=== PATIENT | female | born 1950 | race Caucasian/White ===

== ENCOUNTER 2020-12-17 14:44 | Inpatient (IN) | payer MEDICARE, BC ==
[2020-12-17 17:22] VITALS: BMI 31.2
[2020-12-17] MEDS ORDERED: Morphine 2 MG/ML VIAL SLOW IVP PRN (18:05)
[2020-12-17] MEDS: Sodium Chloride 0.9% 1,000 ML IV SCH (18:46)
[2020-12-17] MEDS ORDERED: Ondansetron PF 4 MG/2 ML Vial IVP PRN (18:50)
--- NOTE | 2020-12-17 19:07 | PDOC.HHP ---
Hospitalist HPI Transfer History of Present Illness: Patient is a 70-year-old female has a remote history of gastric bypass surgery c omplicated by subsequent ulcer and perforation. She required second surgery. Patient reports that she was having some vague symptoms and poor appetite when she presented to the [facility] emergency department. Patient was subsequently placed in observation because she had some mild leukocytosis and her renal function was suboptimal. CT scan of her abdomen appeared to reveal what looks like a self-contained perforation of the anastomosis between the distal gastric remnant and the small intestine. Patient was given some antibiotics and surgery was consulted. Because this was complication of a prior gastric bypass procedure the patient was transferred to this facility for further evaluation. Of note the patient was having some diarrhea. Stool studies were obtained. The only significant finding was a positive H. pylori antigen. Patient was subsequently started on oral antibiotic regimen. Currently the patient says she feels pretty well. The pain medicines are helpin g with her discomfort. It has caused her some itching. Allergies/Adverse Reactions: Allergy/AdvReac Type Severity Reaction Status Date / Time No Known Allergies Allergy Verified 12/16/20 20:29 Home Medications: Medication Instructions Recorded Confirmed Type Amlodipine Besylate [amLODIPine 10 mg PO DAILY 12/17/20 12/17/20 History Besylate] Escitalopram Oxalate [Lexapro] 20 mg PO DAILY 12/17/20 12/17/20 History Lamotrigine [lamoTRIgine] 150 mg PO BID 12/17/20 12/17/20 History Pantoprazole [Protonix] 40 mg PO DAILY-AC 12/17/20 12/17/20 History Valsartan/Hydrochlorothiazide 1 each PO DAILY 12/17/20 12/17/20 History [Valsartan-Hctz 160-12.5 mg Tab] Past History: PMHx: Hypertension, anxiety and depression, remote history of a single kidney stone PSHx: Hysterectomy, gastric bypass, revision after perforated ulcer FHx: Father had stomach cancer, mother had lung cancer, brother of an [place] at 65 Social: Non-smoker, nondrinker, nondrug user. . Full code. would be her surrogate. Hospitalist HPI ROS Constitutional: denies: fever, chills Cardiovascular: denies: chest pain, palpitations Gastrointestinal: reports: abdominal pain All other systems reviewed; all pertinent +/- noted in HPI/Subj Hospitalist Exam Vitals: Vital Signs (12 hours) Temp Pulse Resp BP Pulse Ox 12/17/20 16:46 97.6 F 72 16 105/63 93 L Weight Weight 160 lb General Appearance: NAD, awake alert General - other findings: Obese Neck: supple, symmetric, no JVD, no thyromegaly, no lymphadenopathy, no carotid bruit Heart: RRR, no gallops, no rubs, normal peripheral pulses, II/IV Respiratory: CTAB, no wheezes, no rales, no ronchi, normal chest expansion, no tachypnea, normal percussion Gastrointestinal: soft, non-distended, normal bowel sounds, no palpable masses, no hepatomegaly, no splenomegaly, tender to palpation (Mildly in the epigastrium) Extremities: no cyanosis, no clubbing, no edema Skin: normal turgor Neurological: no focal deficits Musculoskeletal: normal tone, normal strength, no muscle wasting Psychiatric: normal affect, normal behavior, A&O x 3 Hospitalist Results Lab results: White count 13.7, hemoglobin 10.6, platelets 311. Sodium 136, potassium 3.7, chloride 102, BUN 40, creatinine 1.93, GFR 26, glucose 138. Alk phos 183 otherwise LFTs normal. Lipase normal. Covid screen negative Hospitalist H&P A/P (1) Perforated small intestine Code(s): K63.1 - PERFORATION OF INTESTINE (NONTRAUMATIC) Status: Acute (2) Acute kidney injury Code(s): N17.9 - ACUTE KIDNEY FAILURE, UNSPECIFIED Status: Acute (3) History of gastric bypass Code(s): Z98.84 - BARIATRIC SURGERY STATUS Status: Acute Plan: Perforated anastomosis of the gastrointestinal junction: Patient was having some vague symptoms of poor appetite and nausea. CT scan appears to show self-contained perforation of the anastomosis of the gastric remnant and small bowel. Patient does not appear to be septic. She is not terribly tender. Start IV Zosyn. NPO. Consult surgery. Discussed with Dr. Wren. We will obtain CT scan with oral contrast. Pain management as needed. Acute kidney injury: Patient is unaware of any prior kidney problems. She has had relatively routine lab work. Suspect this is more of an acute injury. Based on her indices suspect this is prerenal from dehydration. Continue IV fluids and monitoring the renal function. History of gastric bypass: Appears to be the anastomoses that may be leaking. History of anxiety and depression: We will resume her home medications once she is able to take p.o.'s. Hypertension: We will resume her home medications when she is able to take p.o.'s. Currently blood pressure appears to be well controlled.
[2020-12-17] MEDS ORDERED: diphenhydrAMINE 25 MG in Sodium Chloride 0.9% 50 ML IVPB SCH (19:15)
[2020-12-17] MEDS: Pantoprazole 40 MG VIAL IVP SCH (20:37)
--- NOTE | 2020-12-17 21:13 | CON ---
DATE OF CONSULTATION: 12/17/2020 CHIEF COMPLAINT: Perforated . HISTORY OF PRESENT ILLNESS: This is a 70-year-old female, who 20 years ago had Noah-en-Y gastric bypass for morbid obesity, that postop course was complicated by what sounds like internal hernia that was repaired. She has been doing quite well, but she developed some epigastric pain. Within the last year, saw Dr. Laura Valentin, had an EGD, which she thought was normal, but started on Protonix. She was supposed to go see Dr. Valentin back in 6 months, but she did not because she was feeling okay. She denies smoking. Denies alcohol. Denies that the pain only became worse within the last few days again and states that she has been on Protonix the whole time. She presented with epigastric pain to the [facility], where she was found to have localized perforation, was sent here for higher level of care. PAST MEDICAL HISTORY: Includes hypertension, anxiety, and depression. PAST SURGICAL HISTORY: Hysterectomy, gastric bypass. MEDICATIONS: Home medicines included; 1. Amlodipine. 2. Lexapro. 3. Protonix. 4. Valsartan. 5. Hydrochlorothiazide. ALLERGIES: NO KNOWN DRUG ALLERGIES. SOCIAL HISTORY: No smoking or alcohol. REVIEW OF SYSTEMS: Ten-system review of systems is otherwise negative unless described above. PHYSICAL EXAMINATION: VITAL SIGNS: Pulse 72, respirations 16, and temperature 97.6. HEENT: Sclerae are anicteric. Oropharynx clear. NECK: No lymphadenopathy. CHEST: Clear. HEART: Regular rate. ABDOMEN: Soft. Minimally tender in the epigastric area. No guarding or rebound. No peritoneal signs. No abdominal hernias. EXTREMITIES: No ischemia or edema to extremities. LABORATORY DATA: White blood cell count is 13, hemoglobin 10.6, and platelets 311. Creatinine is elevated slightly at 1.93. IMAGING DATA: CT scan as above. ASSESSMENT: 1. Perforated Zosyn, n.p.o., IV fluids. We will get CT scan with oral contrast to see if there is active extravasation. 2. Acute on chronic renal failure. Creatinine is up slightly. 3. History of anxiety and depression. 4. History of hypertension. PLAN: For CT with oral contrast. If that shows obvious perforation. If that shows ongoing leakage of contrast, she would need a surgical procedure. Otherwise, we will treat this nonoperatively. Job ID: [id number]
[2020-12-17] MEDS: Piperacillin/Tazobactam 2.25 GM in Sodium Chloride 0.9% 100 ML IVPB SCH (23:48)
[2020-12-17] MEDS ORDERED: Piperacillin/Tazobactam 3.375 GM in Sodium Chloride 0.9% 100 ML IVPB SCH (23:59)
[2020-12-18 05:37] LABS: Anion Gap 14 mmol/L (10-20); BUN (Urea Nitrogen) 37 mg/dL (9.8-20.1); Calc. Creatinine Clearance 34 mL/min (70-130); Calcium 8.4 mg/dL (7.8-10.44); Carbon Dioxide 17 mmol/L (23-31); Chloride 107 mmol/L (98-107); Glucose 90 mg/dL (83-110); Potassium 3.8 mmol/L (3.5-5.1); Sodium 134 mmol/L (136-145)
[2020-12-18] MEDS: Piperacillin/Tazobactam 2.25 GM in Sodium Chloride 0.9% 100 ML IVPB SCH ×4 (05:48→23:22)
[2020-12-18] MEDS: Sodium Chloride 0.9% 1,000 ML IV SCH (05:48)
[2020-12-18 07:50] LABS: #Eosinphils 0.1 thou/uL (0.0-0.7); #Lymphocytes 0.7 thou/uL (1.20-3.40); #Monocytes 0.8 thou/uL (0.11-0.59); #Neutrophils 10.8 thou/uL (1.40-6.50); %Basophils 0.1 % (0.0-1.0); %Eosinophils 0.6 % (0.0-10.0); %Lymphocytes 5.8 % (21.0-51.0); %Monocytes 6.4 % (0.0-10.0); %Neutrophils 87.1 % (42.0-75.0); Mean Corpuscular HGB CONC 31.5 g/dL (32.0-36.0); Mean Corpuscular Hemoglobin 30.2 pg (27.0-31.0); Mean Platelet Volume 9.2 fL (7.4-10.4); Platelet Count 246 thou/uL (130-400); RBC Distribution Width 11.1 % (11.5-14.5); Red Blood Cell (RBC) Count 3.62 mill/uL (4.20-5.40); White Blood Cell (WBC) Count 12.4 thou/uL (4.8-10.8)
[2020-12-18 09:01] LABS: Magnesium 2.1 mg/dL (1.6-2.6); Phosphorus 3.1 mg/dL (2.3-4.7)
[2020-12-18] MEDS: Pantoprazole 40 MG VIAL IVP SCH ×2 (09:26→20:10)
[2020-12-18] MEDS: D5 1/2 NS w/20 mEq KCL 1,000 ML IV SCH ×3 (09:28→20:05)
--- NOTE | 2020-12-18 16:27 | CT ---
CT Abdomen WO Con: 12/18/2020 11:46 AM HISTORY: Status post gastric sleeve 20 years ago with multiple surgeries since then secondary to comp lications. Abdominal pain. Evaluate for leak. Poor renal function. COMPARISON: 12/17/2020 TECHNIQUE: Multiple contiguous axial images were obtained and a CT of the abdomen without IV contrast. Oral cont rast was administered. Coronal and sagittal reformats were performed. FINDINGS: This examination is limited for the evaluation of solid organs and vascular structures due to the lac k of intravenous contrast. Lower Chest: Bilateral dependent atelectasis Abdomen: Liver: within normal limits. Bile Ducts: Normal caliber. Gallbladder: Absent Pancreas: within normal limits. Spleen: within normal limits. Adrenals: within normal limits. Kidneys: Stable left renal cyst. Bowel: The patient is status post gastric bypass. Contrast is seen in the stomach and extends into th e jejunal limb and eventually is seen in the colon. There is an outpouching of contrast along the lesser curvature of the gastric pouch containing the enteric contrast which represents a contained pe rforation. This is unchanged compared to the prior examination. No free spillage of the contrast into the upper abdomen is seen. No inflammatory changes are seen adjacent to this outpouching. Scatte red diverticula are seen in the colon. The small bowel is normal in caliber. Mesenteric Lymph Nodes: No enlarged mesenteric lymph nodes. Peritoneum: No ascites or free air, no fluid collection. Vessels: Atherosclerotic calcifications in the aorta Retroperitoneum: within normal limits. Abdominal Wall: within normal limits. Bones: Degenerative changes in the spine. IMPRESSION: 1. There is an area along the gastric pouch along the gastrohepatic ligament that represents a contai henna perforation of the gastric pouch. No spillage of contrast from this contained perforation is seen and the age of this contained perforation is uncertain and could be chronic. 2. Diverticulosis 3. Left renal cyst
--- NOTE | 2020-12-18 17:20 | PRG ---
DATE OF SERVICE: 12/18/2020 SUBJECTIVE: Ms. Johnson has no complaints. She had her CT this afternoon. Discussed with Dr. Lico Lin with Radiology. OBJECTIVE: VITAL SIGNS: She is afebrile. Vital signs are stable. ABDOMEN: Soft, nontender, nondistended. IMAGING DATA: CT scan shows contained chronic perforation. ASSESSMENT: Contained chronic gastrojejunal perforation. PLAN: Options would be observation versus surgery. I do suspect that ultimately she will need to have this revised that would involve likely redo gastrojejunostomy that surgery would most likely be an open surgery. We discussed the potential recovery from that. The other option is observation, although I suspect that she has such a large area of diverticular change next to the anastomosis that it is unlikely heal on its own. Liquid diet this weekend. If I am going to do a revision, it will be Sunday. Job ID: [id number]
--- NOTE | 2020-12-18 18:58 | PDOC.HOSPP ---
- Subjective Encounter Date: 12/18/20 Encounter Time: 10:30 Subjective: Patient seen and examined for abdominal pain with possible perforated viscus. Abdominal pain improving. Denies any nausea. No chest pain or palpitations reported - Objective Vital Signs & Weight: Vital Signs (12 hours) Temp Pulse Resp BP Pulse Ox 12/18/20 15:33 98.0 F 64 16 116/68 94 L 12/18/20 10:57 97.4 F L 60 14 109/67 98 12/18/20 07:55 97.6 F 58 L 14 97/61 92 L Weight Admit Weight 160 lb Weight 160 lb I&O: 12/17/20 12/18/20 12/19/20 06:59 06:59 06:59 Intake Total 0 Balance 0 Result Diagrams: 12/18/20 05:08 12/18/20 05:08 Additional Labs: Abnormal Lab Results - Last 48 hrs 12/18/20 05:08: Sodium 134 L, Carbon Dioxide 17 L, BUN 37 H, Creatinine 1.72 H 12/18/20 05:08: WBC 12.4 H, RBC 3.62 L, Hgb 11.0 L, Hct 34.8 L, MCHC 31.5 L, RDW 11.1 L, Neutrophils % 87.1 H, Lymphocytes % 5.8 L, Neutrophils # 10.8 H, Lymphocytes # 0.7 L, Monocytes # 0.8 H Radiology Reviewed by me: Yes (CT abdomenreviewed) Hospitalist ROS - Review of Systems Respiratory: denies: cough, dry, shortness of breath, hemoptysis, SOB with excertion, pleuritic pain, sputum, wheezing, other Cardiovascular: denies: chest pain, palpitations, orthopnea, paroxysmal noc. dyspnea, edema, light headedness, other - Medication Medications: Active Medications Generic Name Dose Route Start Last Admin Trade Name Freq PRN Reason Stop Dose Admin Piperacillin Sod/Tazobactam 100 mls @ 200 mls/hr 12/17/20 23:59 12/18/20 17:12 Sod 2.25 gm/ Sodium Chloride IVPB 100 mls Q6HR MICHAEL Administration Potassium Chloride/Dextrose/Sod Cl 1,000 mls @ 150 mls/hr 12/18/20 08:15 12/18/20 18:35 D5 1/2 Ns W/20 Meq Kcl IV Not Given .[id number] [facility] Pantoprazole Sodium 40 mg 12/17/20 21:00 12/18/20 09:26 Pantoprazole 40 Mg Vial IVP 40 mg Q12HR [facility] Administration Hospitalist Exam Vitals: Vital Signs (12 hours) Temp Pulse Resp BP Pulse Ox 12/18/20 15:33 98.0 F 64 16 116/68 94 L 12/18/20 10:57 97.4 F L 60 14 109/67 98 12/18/20 07:55 97.6 F 58 L 14 97/61 92 L Weight Admit Weight 160 lb Weight 160 lb General Appearance: awake alert Neck: supple, no JVD Heart: RRR, no gallops, no rubs Respiratory: no rales, no ronchi Gastrointestinal: non-distended, no guarding, no rigidity, tender to palpation (And lower quadrant) Neurological: no new deficit Psychiatric: A&O x 3 Hosp A/P - Plan DVT proph w/SCDs Impression: Abdominal pain due to contained chronic gastrojejunal perforation MELBA Metabolic acidosis Hyponatremia Chronic anemia suspected due to nutritional deficiency History of gastric bypass Anxiety Hypertension Plan: Await repeat CT scan today. Add dextrose to IV fluids while n.p.o. Continue IV Zosyn. Continue PPI. Pain control a.m. labs. Continue other medications as above add as needed medications. Resume selected home medications. Continue other medications as above
[2020-12-18] MEDS ORDERED: Acetaminophen 325 MG TAB PO PRN (19:03)
[2020-12-18] MEDS ORDERED: cloNIDine 0.1 MG TAB PO PRN (19:03)
[2020-12-18] MEDS ORDERED: Amlodipine 5 MG TAB PO PRN (19:06)
[2020-12-18] MEDS: lamoTRIgine 100 MG TAB PO SCH (20:10)
[2020-12-18] MEDS: Zolpidem Tartrate 5 MG TAB PO SCH (22:08)
[2020-12-19] MEDS: Piperacillin/Tazobactam 2.25 GM in Sodium Chloride 0.9% 100 ML IVPB SCH ×4 (06:28→23:18)
[2020-12-19] MEDS: D5 1/2 NS w/20 mEq KCL 1,000 ML IV SCH ×2 (06:28→15:40)
[2020-12-19] MEDS: lamoTRIgine 100 MG TAB PO SCH ×2 (09:14→20:08)
[2020-12-19] MEDS: Escitalopram Oxalate 20 mg Tablet PO SCH (09:14)
[2020-12-19] MEDS: Pantoprazole 40 MG VIAL IVP SCH ×2 (09:16→20:09)
--- NOTE | 2020-12-19 09:18 | PRG ---
DATE OF SERVICE: 12/19/2020 SUBJECTIVE: Ms. Johnson has no complaints. She tolerated the clear liquids without difficulty. OBJECTIVE: VITAL SIGNS: She is afebrile. Vital signs are stable. ABDOMEN: Soft, only mildly tender in the mid epigastric area. ASSESSMENT: Chronic perforation at the gastrojejunal anastomosis, hemodynamically stable. This area is walled off and compartmentalized on a CT scan. PLAN: Advance to full liquids today. We will discuss with the bariatric team tomorrow and review films. I suspect she will need revision next week, but we will try full liquids today. Job ID: [id number]
[2020-12-19 09:51] LABS: #Basophils 0.1 thou/uL (0.0-0.2); #Eosinphils 0.1 thou/uL (0.0-0.7); #Monocytes 0.7 thou/uL (0.11-0.59); #Neutrophils 8.8 thou/uL (1.40-6.50); %Basophils 0.5 % (0.0-1.0); %Lymphocytes 9.6 % (21.0-51.0); %Monocytes 6.6 % (0.0-10.0); %Neutrophils 82.3 % (42.0-75.0); Hemoglobin 10.3 g/dL (12.0-16.0); Mean Corpuscular HGB CONC 31.8 g/dL (32.0-36.0); Mean Corpuscular Hemoglobin 29.9 pg (27.0-31.0); Mean Corpuscular Volume 93.9 fL (78.0-98.0); Mean Platelet Volume 8.9 fL (7.4-10.4); Platelet Count 330 thou/uL (130-400); RBC Distribution Width 11.1 % (11.5-14.5); Red Blood Cell (RBC) Count 3.45 mill/uL (4.20-5.40); White Blood Cell (WBC) Count 10.7 thou/uL (4.8-10.8)
[2020-12-19 10:09] LABS: Lactic Acid 0.7 mmol/L (0.5-2.2)
[2020-12-19 10:17] LABS: ALT (SGPT) 147 U/L (8-55); AST (SGOT) 94 U/L (5-34); Albumin 2.5 g/dL (3.4-4.8); Alkaline Phosphatase 587 U/L (40-110); Anion Gap 12 mmol/L (10-20); BUN (Urea Nitrogen) 27 mg/dL (9.8-20.1); Bilirubin, Total 0.4 mg/dL (0.2-1.2); Calc. Creatinine Clearance 38 mL/min (70-130); Calcium 8.1 mg/dL (7.8-10.44); Carbon Dioxide 20 mmol/L (23-31); Chloride 109 mmol/L (98-107); Globulin 2.5 g/dL (2.4-3.5); Glucose 127 mg/dL (83-110); Magnesium 2.1 mg/dL (1.6-2.6); Phosphorus 2.2 mg/dL (2.3-4.7); Potassium 3.8 mmol/L (3.5-5.1); Sodium 137 mmol/L (136-145)
[2020-12-19] MEDS ORDERED: Saccharomyces boulardii 250 MG CAP PO SCH (12:30)
--- NOTE | 2020-12-19 15:52 | PDOC.HOSPP ---
- Subjective Encounter Date: 12/19/20 Encounter Time: 11:30 Subjective: Patient seen and examined for abdominal pain which is improving. Intermittent diarrhea reported. Denies any nausea or vomiting. No chest pain, fever or chills reported. - Objective Vital Signs & Weight: Vital Signs (12 hours) Temp Pulse Resp BP Pulse Ox 12/19/20 11:21 98.2 F 61 16 123/76 96 12/19/20 08:00 94 L 12/19/20 07:33 97.8 F 56 L 14 124/75 94 L Weight Admit Weight 160 lb Weight 160 lb I&O: 12/18/20 12/19/20 12/20/20 06:59 06:59 06:59 Intake Total 0 1200 Balance 0 1200 Result Diagrams: 12/19/20 08:39 12/19/20 08:39 Additional Labs: Abnormal Lab Results - Last 48 hrs 12/18/20 05:08: Sodium 134 L, Carbon Dioxide 17 L, BUN 37 H, Creatinine 1.72 H 12/18/20 05:08: WBC 12.4 H, RBC 3.62 L, Hgb 11.0 L, Hct 34.8 L, MCHC 31.5 L, RDW 11.1 L, Neutrophils % 87.1 H, Lymphocytes % 5.8 L, Neutrophils # 10.8 H, Lymphocytes # 0.7 L, Monocytes # 0.8 H 12/19/20 08:39: Chloride 109 H, Carbon Dioxide 20 L, BUN 27 H, Creatinine 1.53 H, Phosphorus 2.2 L, AST 94 H, ALT 147 H, Alkaline Phosphatase 587 H, Serum Total Protein 5.0 L, Albumin 2.5 L, Albumin/Globulin Ratio 1.0 L 12/19/20 08:39: RBC 3.45 L, Hgb 10.3 L, Hct 32.4 L, MCHC 31.8 L, RDW 11.1 L, Neutrophils % 82.3 H, Lymphocytes % 9.6 L, Neutrophils # 8.8 H, Lymphocytes # 1.0 L, Monocytes # 0.7 H Radiology Reviewed by me: Yes (CT scan of the abdomenreviewed) Hospitalist ROS - Review of Systems Respiratory: denies: cough, dry, shortness of breath, hemoptysis, SOB with excertion, pleuritic pain, sputum, wheezing, other Cardiovascular: denies: chest pain, palpitations, orthopnea, paroxysmal noc. dyspnea, edema, light headedness, other - Medication Medications: Active Medications Generic Name Dose Route Start Last Admin Trade Name Ike PRN Reason Stop Dose Admin Acetaminophen 650 mg 12/18/20 19:03 12/18/20 20:12 Acetaminophen 325 Mg Tab PO 650 mg Q4H PRN Administration Headache/Fever or Mild Pain Escitalopram Oxalate 20 mg 12/19/20 09:00 12/19/20 09:14 Escitalopram Oxalate 20 Mg Tablet PO 20 mg DAILY MICHAEL Administration Piperacillin Sod/Tazobactam 100 mls @ 200 mls/hr 12/17/20 23:59 12/19/20 12:09 Sod 2.25 gm/ Sodium Chloride IVPB 100 mls Q6HR MICHAEL Administration Potassium Chloride/Dextrose/Sod Cl 1,000 mls @ 75 mls/hr 12/18/20 19:02 12/19 15:40 D5 1/2 Ns W/20 Meq Kcl IV 1,000 mls .[id number] MICHAEL Administration Lamotrigine 150 mg 12/18/20 21:00 12/19/20 09:14 Lamotrigine 100 Mg Tab PO 150 mg BID MICHAEL Administration Pantoprazole Sodium 40 mg 12/17/20 21:00 12/19/20 09:16 Pantoprazole 40 Mg Vial IVP 40 mg Q12HR MICHAEL Administration Zolpidem Tartrate 5 mg 12/18/20 21:00 12/18/20 22:08 Zolpidem Tartrate 5 Mg Tab PO 5 mg HS MICHAEL Administration Hospitalist Exam Vitals: Vital Signs (12 hours) Temp Pulse Resp BP Pulse Ox 12/19/20 11:21 98.2 F 61 16 123/76 96 12/19/20 08:00 94 L 12/19/20 07:33 97.8 F 56 L 14 124/75 94 L Weight Admit Weight 160 lb Weight 160 lb General Appearance: NAD Neck: supple, no JVD Heart: RRR, no gallops Respiratory: no wheezes, no ronchi Gastrointestinal: soft, non-distended, normal bowel sounds, no guarding, no rigidity Extremities: no cyanosis, no clubbing Musculoskeletal: generalized weakness Psychiatric: normal affect, A&O x 3 Hosp A/P - Plan DVT proph w/SCDs Patient is a 70-year-old female with gastric bypass at outside facility in the past presented to the emergency room with abdominal pain on 12/16. CT scan of the abdomen and pelvis showed findings consistent with contained perforation of the anterior gastric pouch. Patient was monitored on the surgical floor and was started on empiric antibiotics. She was evaluated by general surgery. She underwent a repeat CT scan with oral contrast on 12/18 that showed an area along the gastric pouch with contained perforation with diverticulosis and left renal cyst. She was started on clear liquid diet that was advanced to full liquid on 12/19. Impression: Abdominal pain due to contained ?chronic gastrojejunal perforation MELBA Metabolic acidosis Hyponatremia Chronic anemia suspected due to nutritional deficiency History of gastric bypass Anxiety Hypertension Plan: Vital signs stable. WBC count normalized. Renal function improving. Will replace phosphorus. Continue IV Zosyn. Reduce IV fluid to 75 mL. Continue Lexapro, Lamictal and other medications as above. Due to diarrhea a C. difficile sample will be sent. Add probiotics 12/[address] scan today. Add dextrose to IV fluids while n.p.o. Continue IV Zosyn. Continue PPI. Pain control a.m. labs. Continue other medications as above add as needed medications. Resume selected home medications. Continue other medications as above
[2020-12-19] MEDS: K-Phos Neutral 250 MG TAB PO SCH (17:31)
[2020-12-19] MEDS: Zolpidem Tartrate 5 MG TAB PO SCH (20:09)
[2020-12-20] MEDS: Piperacillin/Tazobactam 2.25 GM in Sodium Chloride 0.9% 100 ML IVPB SCH ×4 (05:19→23:27)
[2020-12-20 06:41] LABS: #Eosinphils 0.1 thou/uL (0.0-0.7); #Lymphocytes 1.1 thou/uL (1.20-3.40); #Monocytes 0.8 thou/uL (0.11-0.59); #Neutrophils 7.1 thou/uL (1.40-6.50); %Basophils 0.1 % (0.0-1.0); %Eosinophils 1.5 % (0.0-10.0); %Lymphocytes 11.7 % (21.0-51.0); %Monocytes 8.4 % (0.0-10.0); %Neutrophils 78.3 % (42.0-75.0); Hemoglobin 9.8 g/dL (12.0-16.0); Mean Corpuscular HGB CONC 32.1 g/dL (32.0-36.0); Mean Corpuscular Hemoglobin 30.1 pg (27.0-31.0); Mean Corpuscular Volume 93.8 fL (78.0-98.0); Mean Platelet Volume 8.5 fL (7.4-10.4); Platelet Count 355 thou/uL (130-400); RBC Distribution Width 11.1 % (11.5-14.5); Red Blood Cell (RBC) Count 3.26 mill/uL (4.20-5.40); White Blood Cell (WBC) Count 9.1 thou/uL (4.8-10.8)
[2020-12-20 07:00] LABS: Anion Gap 10 mmol/L (10-20); BUN (Urea Nitrogen) 18 mg/dL (9.8-20.1); Calc. Creatinine Clearance 43 mL/min (70-130); Calcium 8.2 mg/dL (7.8-10.44); Carbon Dioxide 22 mmol/L (23-31); Chloride 110 mmol/L (98-107); Glucose 94 mg/dL (83-110); Magnesium 1.7 mg/dL (1.6-2.6); Phosphorus 2.7 mg/dL (2.3-4.7); Potassium 3.8 mmol/L (3.5-5.1); Sodium 138 mmol/L (136-145)
[2020-12-20] MEDS: Saccharomyces boulardii 250 MG CAP PO SCH (08:27)
[2020-12-20] MEDS: Escitalopram Oxalate 20 mg Tablet PO SCH (08:27)
[2020-12-20] MEDS: Pantoprazole 40 MG VIAL IVP SCH ×2 (08:28→20:49)
[2020-12-20] MEDS: lamoTRIgine 100 MG TAB PO SCH ×2 (08:28→20:47)
[2020-12-20] MEDS ORDERED: Magnesium 2 GM/50 ML 2 GM in Premix Bag 1 BAG IVPB SCH (09:00)
[2020-12-20] MEDS: D5 1/2 NS w/20 mEq KCL 1,000 ML IV SCH (09:46)
[2020-12-20] MEDS: K-Phos Neutral 250 MG TAB PO SCH ×4 (11:05→18:09)
--- NOTE | 2020-12-20 12:30 | PRG ---
DATE OF SERVICE: 12/20/2020 SUBJECTIVE: Ms. Johnson is feeling well today. She is tolerating the full liquids without difficulty. No nausea or vomiting. OBJECTIVE: VITAL SIGNS: Blood pressure 114/59, pulse 66, respirations 12, she is afebrile. ABDOMEN: She is only minimally tender in the epigastric area. No guarding or rebound. LABORATORY DATA: White blood cell count is 9, hemoglobin 9.8, platelet count is 355. Sodium 138, potassium 3.8, creatinine 1.35. ASSESSMENT: Chronic perforation of gastrojejunal anastomosis from previous gastric bypass. PLAN: Revision tomorrow. Risks, benefits, alternatives discussed. She gives consent. We will do that tomorrow. Job ID: [id number]
[2020-12-20] MEDS: Zolpidem Tartrate 5 MG TAB PO SCH (21:43)
[2020-12-21] MEDS: D5 1/2 NS w/20 mEq KCL 1,000 ML IV SCH ×4 (02:19→23:40)
[2020-12-21] MEDS: Piperacillin/Tazobactam 2.25 GM in Sodium Chloride 0.9% 100 ML IVPB SCH ×2 (05:12→13:07)
[2020-12-21] MEDS ORDERED: XYLOCAINE 2%-EPI 1:100,000 20 ML VIAL ONE (08:03)
[2020-12-21] MEDS ORDERED: Bupivacaine 0.25% HCL 30 ML VIAL ONE (08:03)
[2020-12-21] MEDS ORDERED: Fentanyl 100 MCG/2 ML VIAL ONE ×3 (08:19→11:38)
[2020-12-21] MEDS: K-Phos Neutral 250 MG TAB PO SCH ×2 (08:31→13:07)
[2020-12-21] MEDS: lamoTRIgine 100 MG TAB PO SCH (08:32)
[2020-12-21] MEDS: Pantoprazole 40 MG VIAL IVP SCH (08:32)
[2020-12-21] MEDS: Saccharomyces boulardii 250 MG CAP PO SCH (08:32)
[2020-12-21] MEDS: Escitalopram Oxalate 20 mg Tablet PO SCH (08:32)
--- NOTE | 2020-12-21 10:21 | PDOC.HOSPP ---
- Subjective Encounter Date: 12/20/20 Encounter Time: 12:00 Subjective: Patient seen and examined for abdominal pain. Denies any nausea or abdominal pain. Tolerating liquid diet. - Objective Vital Signs & Weight: Vital Signs (12 hours) Temp Pulse Resp BP Pulse Ox 12/21/20 06:14 97.7 F 60 16 126/83 97 Weight Admit Weight 160 lb Weight 160 lb I&O: 12/20/20 12/21/20 12/22/20 06:59 06:59 06:59 Intake Total 3190 1840 Balance 3190 1840 Result Diagrams: 12/20/20 06:25 12/20/20 06:25 Additional Labs: Abnormal Lab Results - Last 48 hrs 12/20/20 06:25: Chloride 110 H, Carbon Dioxide 22 L, Creatinine 1.35 H 12/20/20 06:25: RBC 3.26 L, Hgb 9.8 L, Hct 30.6 L, RDW 11.1 L, Neutrophils % 78.3 H, Lymphocytes % 11.7 L, Neutrophils # 7.1 H, Lymphocytes # 1.1 L, Monocytes # 0.8 H Microbiology - Entire Visit 12/19/20 15:50 Stool C. difficile [facility] Antigen & Toxins - Final Hospitalist ROS - Review of Systems Respiratory: denies: cough, dry, shortness of breath, hemoptysis, SOB with excertion, pleuritic pain, sputum, wheezing, other Cardiovascular: denies: chest pain, palpitations, orthopnea, paroxysmal noc. dyspnea, edema, light headedness, other - Medication Medications: Active Medications Generic Name Dose Route Start Last Admin Trade Name Catrachoq PRN Reason Stop Dose Admin Acetaminophen 650 mg 12/18/20 19:03 12/18/20 20:12 Acetaminophen 325 Mg Tab PO 650 mg Q4H PRN Administration Headache/Fever or Mild Pain Escitalopram Oxalate 20 mg 12/19/20 09:00 12/21/20 08:32 Escitalopram Oxalate 20 Mg Tablet PO Not Given DAILY MICHAEL Piperacillin Sod/Tazobactam 100 mls @ 200 mls/hr 12/17/20 23:59 12/21/20 05:12 Sod 2.25 gm/ Sodium Chloride IVPB 100 mls Q6HR MICHAEL Administration Potassium Chloride/Dextrose/Sod Cl 1,000 mls @ 75 mls/hr 12/18/20 19:02 12/21/20 02:19 D5 11/20 Ns W/20 Meq Kcl IV Not Given .[id number] MICHAEL Lamotrigine 150 mg 12/18/20 21:00 12/21/20 08:32 Lamotrigine 100 Mg Tab PO Not Given BID MICHAEL Pantoprazole Sodium 40 mg 12/17/20 21:00 12/21/20 08:32 Pantoprazole 40 Mg Vial IVP Not Given Q12HR MICHAEL Phosphorus 250 mg 12/19/20 17:00 12/21/20 08:31 K-Phos Neutral 250 Mg Tab PO Not Given TID-WM MICHAEL Saccharomyces Boulardii 250 mg 12/20/20 09:00 12/21/20 08:32 Saccharomyces Boulardii 250 Mg Cap PO Not Given DAILY MICHAEL Zolpidem Tartrate 5 mg 12/18/20 21:00 12/20/20 21:43 Zolpidem Tartrate 5 Mg Tab PO 5 mg HS MICHAEL Administration Hospitalist Exam Vitals: Vital Signs (12 hours) Temp Pulse Resp BP Pulse Ox 12/21/20 06:14 97.7 F 60 16 126/83 97 Weight Admit Weight 160 lb Weight 160 lb General Appearance: awake alert Neck: supple, no JVD Heart: RRR, no gallops Respiratory: no wheezes, no ronchi Gastrointestinal: non-tender, normal bowel sounds, no guarding Extremities: no cyanosis Neurological: no new deficit Hosp A/P - Plan DVT proph w/SCDs Patient is a 70-year-old female with gastric bypass at outside facility in the past presented to the emergency room with abdominal pain on 12/16. CT scan of the abdomen and pelvis showed findings consistent with contained perforation of the anterior gastric pouch. Patient was monitored on the surgical floor and was started on empiric antibiotics. She was evaluated by general surgery. She un derwent a repeat CT scan with oral contrast on 12/18 that showed an area along the gastric pouch with contained perforation with diverticulosis and left renal cyst. She was started on clear liquid diet that was advanced to full liquid on 12/19. Impression: Abdominal pain due to contained ?chronic gastrojejunal perforation MELBA Metabolic acidosis Hyponatremia Chronic anemia suspected due to nutritional deficiency History of gastric bypass Anxiety Hypertension Plan: Vital signs stable. Continue gentle hydration. Renal function improving. Stool for C. difficile was negative. Continue empiric antibiotics. Surgery in a.m. Replace magnesium. Continue other medications as above 12/19 Vital signs stable. WBC count normalized. Renal function improving. Will replace phosphorus. Continue IV Zosyn. Reduce IV fluid to 75 mL. Continue Lexapro, Lamictal and other medications as above. Due to diarrhea a C. difficile sample will be sent. Add probiotics 12/[address] scan today. Add dextrose to IV fluids while n.p.o. Continue IV Zosyn. Continue PPI. Pain control a.m. labs. Continue other medications as above add as needed medications. Resume selected home medications. Continue other medications as above
[2020-12-21] MEDS ORDERED: PROPOFOL 200 MG/20 ML VIAL ONE (10:32)
[2020-12-21] MEDS ORDERED: Glycopyrrolate 0.2 MG/ML 5 ML SYRINGE ONE (10:32)
[2020-12-21] MEDS ORDERED: Lidocaine 1% PF 5 ML VIAL ONE (10:32)
[2020-12-21] MEDS ORDERED: Dexamethasone 20 MG/5 ML VIAL ONE (10:32)
[2020-12-21] MEDS ORDERED: Rocuronium Bromide 10 MG/ML (10ML VIAL) ONE (10:32)
[2020-12-21] MEDS ORDERED: Ondansetron PF 4 MG/2 ML Vial ONE (10:32)
[2020-12-21] MEDS ORDERED: Esmolol 100 MG/10 ML VIAL ONE (10:32)
[2020-12-21] MEDS ORDERED: SUGAMMADEX SODIUM 200 MG/2 ML VIAL ONE (10:58)
[2020-12-21] MEDS ORDERED: HYDROmorphone 2 MG/ML VIAL SLOW IVP PRN (11:14)
[2020-12-21] MEDS ORDERED: Promethazine HCl 25 MG/ML VIAL IM PRN ×4 (11:14→13:04)
[2020-12-21] MEDS ORDERED: Promethazine HCl 25 MG/ML VIAL SLOW IVP PRN ×2 (11:14→11:27)
[2020-12-21] MEDS ORDERED: Ondansetron HCl/PF 4 MG/2 ML Vial IVP PRN ×2 (11:14→11:27)
[2020-12-21] MEDS ORDERED: diphenhydrAMINE 50 MG/ML VIAL IVP PRN ×2 (11:27→13:04)
[2020-12-21] MEDS ORDERED: Ondansetron PF 4 MG/2 ML Vial IVP PRN ×2 (11:27→13:04)
[2020-12-21] MEDS ORDERED: fentaNYL Citrate/PF 2,000 MCG in Sodium Chloride 0.9% 60 ML IV PRN (11:27)
[2020-12-21] MEDS ORDERED: diphenhydrAMINE 50 MG/ML VIAL IM PRN (11:27)
[2020-12-21] MEDS ORDERED: diphenhydrAMINE 25 MG CAP PO PRN (11:27)
[2020-12-21] MEDS ORDERED: Naloxone HCl 0.4 mg/ml Vial IV PRN (11:27)
[2020-12-21] MEDS ORDERED: Communication Order-Pharmacy FS SCH (11:30)
[2020-12-21] MEDS ORDERED: Promethazine HCl 25 MG/ML VIAL ONE (11:50)
[2020-12-21] MEDS ORDERED: hydrALAZINE 20 MG/ML VIAL SLOW IVP PRN (13:04)
[2020-12-21] MEDS ORDERED: Hydrocodone-Acetamin 15 ML UDCUP PO PRN (13:04)
[2020-12-21] MEDS ORDERED: Dextrose 5% in Water 1,000 ML IV PRN (13:04)
[2020-12-21] MEDS ORDERED: Dextrose 50% Abboject 50 ML SYRINGE SLOW IVP PRN (13:04)
--- NOTE | 2020-12-21 14:27 | OP ---
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 PROCEDURES PERFORMED: 1. Open revision of gastrojejunostomy with new EEA-stapled anastomosis. 2. Feeding gastrostomy tube in remnant stomach. 3. Placement of temporary abdominal drain. ANESTHESIA: General. ESTIMATED BLOOD LOSS: 100 mL. COMPLICATIONS: None. FINDINGS: Normal postoperative EGD reveals no obvious leak small gastric pouch. BRIEF HISTORY: The patient is a 70-year-old female with history of a remote gastric bypass complicated by chronic perforation and walled off area just anterior to her anastomosis on scans. Risks, benefits, and alternatives were discussed. She gave consent for surgery. DESCRIPTION OF PROCEDURE: The patient was taken to the operating room and laid supine on the operating room table. After general anesthetic was obtained, a Escobar was placed. The abdomen was prepped and draped in a sterile fashion. A midline incision was made from xiphoid to the umbilicus. Cautery was dissected down to and into the abdominal cavity. Falciform was taken using the LigaSure. A Bookwalter retractor was placed. The Noah limb was traced up to the gastric pouch. There was adhesions to the liver that were taken down with careful dissection. The chronic cavity was entered along the gastrohepatic ligament. Bluntly the cavity was dissected open, exposing the anterior portion of the anastomosis. The anterior 180 degrees of the previous anastomosis was completely devitalized and opened. Dissection was performed around the Noah limb going up. It was dissected off the top of the remnant stomach. This was able to be dropped down, exposing the gastric pouch. In the gastric pouch, a circumferential dissection was performed as well. Adhesions were taken down up to the angle of His. The area of previous anastomosis was completely devitalized and had to be resected. 25 EEA was brought in and its anvil with the sharp pin was passed through the open part of the gastric pouch and brought out on the anterior surface above. Multiple loads of an [place] stapler used to staple off the open end of the gastric pouch. This segment of stomach was sent to [facility] for final diagnosis. The Noah limb coming up was under no tension. It was prepared. The enterotomy was made more distal to where it was already open and the base for the EEA stapler was passed through the end and its sharp pin brought out on the antimesenteric surface of the intestine further below. This was connected to the anvil from above and the stapler was tightened down and fired. There were two good rings of tissue. The left over small intestine including the previous anastomosis was then stapled off at the level of this and sent to [facility] for final diagnosis. The anastomosis was oversewn using Vicryl sutures. A few bleeders were oversewn using silk sutures. EGD scope was passed through the esophagus into the stomach pouch revealing no evidence of leakage underwater. There was no stenosis at the anastomosis. EGD scope was used to decompress. The stomach pouch was pulled and removed. The remnant stomach greater curve was able to be brought up to the posterior abdominal wall under no tension. A pursestring of silk was placed. A gastrotomy was made through there. The replacement PEG tube was brought into the left upper quadrant, placed into the gastrotomy. Its balloon inflated and the pursestring tied down. This was pulled up against the posterior abdominal wall and sutured with silk sutures circumferentially. A 19 round drain was brought out through a right upper quadrant stab incision and left posterior to the anastomosis and trailed up towards the left oscar and diaphragm. It was sewn in place using silk. All instrument counts, needle counts, and lap counts were correct. PDS was used in the fascia from top to bottom, tied in the middle. Subcutaneous tissues were irrigated and the skin was closed using 3-0 Vicryl, 4-0 Monocryl, and Dermabond. The patient was en route to Recovery in stable condition. All instrument counts, needle counts, and lap counts were correct. Job ID: [id number]
--- NOTE | 2020-12-21 17:09 | PDOC.GSPN ---
Surgery Progress Note: Subj - Subjective Narrative: Patient is a 70 year old female with a past history of Noah-en-Y bypass that presented to the hospital due to abdominal pain and N/V. She is s/p day 0 from a revision gastrojejunostomy with PEG tube placement for gastric perforation. She is currently in 9/10 pain, but appears to be in moderate distress. She says that she has been dozing in and out since surgery. She has not passed flatus or had a bowel movement. Surgery Progress Note: Obj - Vital signs Vital signs: Vital Signs - Most Recent Temp Pulse Resp BP Pulse Ox 98.3 F 72 16 150/77 H 97 12/21/20 15:50 12/21/20 15:50 12/21/20 15:50 12/21/20 15:50 12/21/20 15:50 - Physical Exam General: moderate distress, well nourished, severe pain Neck: no bruits, no ninfa distention Cardiovascular: regular rate and rhythm Respiratory: clear to auscultation, normal expansion, normal respiratory effort, breath sounds present Abdomen: soft, nondistended, positive bowel sounds, appropriately tender Wound: dressing clean,dry,intact, healing well, drainage (KIRBY drain with ~10 mL bloody fluid) Surgery Progress Note: Results - Labs Result Diagrams: 12/20/20 06:25 12/20/20 06:25 Surgery Progress Note: A/P - Plan Plan: Gastric perforation - Patient is s/p day 0 from a gastrojejunostomy repair with PEG tube placement. - Clear liquid diet as tolerated - PLANER OFF BEARER pump and prn hydrocodone for pain control - PT/OT to get the patient ambulatory - Continue to monitor KIRBY drain output for any changes - IV zosyn for infection ppx
--- NOTE | 2020-12-21 19:22 | PDOC.HOSPP ---
- Subjective Encounter Date: 12/21/20 Encounter Time: 13:30 Subjective: Patient seen and examined for gastric perforation status post gastrojejunostomy repair with PEG tube placement. Patient is under the effect of anesthesia. - Objective Vital Signs & Weight: Vital Signs (12 hours) Temp Pulse Resp BP BP Pulse Ox 12/21/20 15:50 98.3 F 72 16 150/77 H 97 12/21/20 14:23 67 137/78 12/21/20 14:03 60 179/79 H 12/21/20 13:28 168/82 H 12/21/20 13:20 37.0 F L 66 16 170/80 H 96 Weight Admit Weight 160 lb Weight 160 lb I&O: 12/20/20 12/21/20 12/22/20 06:59 06:59 06:59 Intake Total 3190 1840 Output Total 420 Balance 3190 1840 -420 Result Diagrams: 12/20/20 06:25 12/20/20 06:25 Hospitalist ROS - Review of Systems ROS unobtainable: due to mental status - Medication Medications: Active Medications Generic Name Dose Route Start Last Admin Trade Name Freq PRN Reason Stop Dose Admin Hydralazine HCl 10 mg 12/21/20 13:04 12/21/20 14:03 Hydralazine 20 Mg/Ml Vial SLOW IVP 10 mg Q4H PRN Administration SBP > 170 or DBP > 100 Potassium Chloride/Dextrose/Sod Cl 1,000 mls @ 125 mls/hr 12/21/20 13:04 12/21/20 17:32 D5 1/2 Ns W/20 Meq Kcl IV 1,000 mls .Q8H MICHAEL Administration Ondansetron HCl 4 mg 12/21/20 11:27 12/21/20 17:32 Ondansetron Pf 4 Mg/2 Ml Vial IVP 4 mg Q6H PRN Administration Nausea/Vomiting Hospitalist Exam Vitals: Vital Signs (12 hours) Temp Pulse Resp BP BP Pulse Ox 12/21/20 15:50 98.3 F 72 16 150/77 H 97 12/21/20 14:23 67 137/78 12/21/20 14:03 60 179/79 H 12/21/20 13:28 168/82 H 12/21/20 13:20 37.0 F L 66 16 170/80 H 96 Weight Admit Weight 160 lb Weight 160 lb General Appearance: NAD Heart: RRR, no gallops Respiratory: no wheezes, no rales Gastrointestinal: soft, no guarding, no rigidity Extremities: no cyanosis Neurological: no new deficit Hosp A/P - Plan DVT proph w/SCDs Patient is a 70-year-old female with gastric bypass at outside facility in the past presented to the emergency room with abdominal pain on 12/16. CT scan of the abdomen and pelvis showed findings consistent with contained perforation of the anterior gastric pouch. Patient was monitored on the surgical floor and was started on empiric antibiotics. She was evaluated by general surgery. She underwent a repeat CT scan with oral contrast on 12/18 that showed an area along the gastric pouch with contained perforation with diverticulosis and left renal cyst. She was started on clear liquid diet that was advanced to full liquid on 12/19. Patient underwent gastrojejunostomy revision with PEG tube placement on 12/21/2020. Impression: Abdominal pain due to contained ?chronic gastrojejunal perforation MELBA Metabolic acidosis Hyponatremia Chronic anemia suspected due to nutritional deficiency History of gastric bypass Anxiety Hypertension Plan: Patient underwent gastrojejunostomy repair today. Renal function improving. Continue IV fluids with dextrose and potassium. Zosyn was discontinued. Continue IV PPIs. Recheck labs in a.m. continue postoperative care. N.p.o. for now. Consult walking program 12/20 Vital signs stable. Continue gentle hydration. Renal function improving. Stool for C. difficile was negative. Continue empiric antibiotics. Surgery in a.m. Replace magnesium. Continue other medications as above 12/19 Vital signs stable. WBC count normalized. Renal function improving. Will replace phosphorus. Continue IV Zosyn. Reduce IV fluid to 75 mL. Continue Lexapro, Lamictal and other medications as above. Due to diarrhea a C. difficile sample will be sent. Add probiotics 12/[address] scan today. Add dextrose to IV fluids while n.p.o. Continue IV Zosyn. Continue PPI. Pain control a.m. labs. Continue other medications as above add as needed medications. Resume selected home medications. Continue other medications as above
[2020-12-22 07:24] LABS: Phosphorus 2.7 mg/dL (2.3-4.7)
[2020-12-22 07:25] LABS: Anion Gap 10 mmol/L (10-20); BUN (Urea Nitrogen) 9 mg/dL (9.8-20.1); Calc. Creatinine Clearance 57 mL/min (70-130); Calcium 8.2 mg/dL (7.8-10.44); Carbon Dioxide 22 mmol/L (23-31); Chloride 107 mmol/L (98-107); Glucose 166 mg/dL (83-110); Magnesium 1.3 mg/dL (1.6-2.6); Potassium 4.4 mmol/L (3.5-5.1); Sodium 135 mmol/L (136-145)
[2020-12-22 07:41] LABS: #Eosinphils 0.1 thou/uL (0.0-0.7); #Lymphocytes 1.2 thou/uL (1.20-3.40); #Monocytes 1.4 thou/uL (0.11-0.59); #Neutrophils 12.7 thou/uL (1.40-6.50); %Basophils 0.1 % (0.0-1.0); %Eosinophils 0.6 % (0.0-10.0); %Lymphocytes 7.6 % (21.0-51.0); %Monocytes 8.9 % (0.0-10.0); %Neutrophils 82.9 % (42.0-75.0); Hemoglobin 10.1 g/dL (12.0-16.0); Mean Corpuscular HGB CONC 31.2 g/dL (32.0-36.0); Mean Corpuscular Hemoglobin 29.8 pg (27.0-31.0); Mean Corpuscular Volume 95.3 fL (78.0-98.0); Mean Platelet Volume 8.8 fL (7.4-10.4); Platelet Count 428 thou/uL (130-400); RBC Distribution Width 11.2 % (11.5-14.5); Red Blood Cell (RBC) Count 3.41 mill/uL (4.20-5.40); White Blood Cell (WBC) Count 15.4 thou/uL (4.8-10.8)
--- NOTE | 2020-12-22 08:08 | PDOC.GSPN ---
Surgery Progress Note: Subj - Subjective Patient reports: nausea, no flatus, still having pain (patient is still 9/10 darrin n, but she keeps forgetting to push her ENVIRONMENTAL REMEDIATION SPECIALIST) Narrative: Patient is s/p day 1 from revision gastrojejunustomy with PEG tube placement due to gastric perforation. She is still in considerable pain, however she is not pushing her ENVIRONMENTAL REMEDIATION SPECIALIST pump appropriately. She was advised to push the button whenever her pain increases. She tried to get out of bed yesterday, but felt lightheaded so she laid back down. She has not been ambulatory since the procedure yesterday morning. Patient denies headache, chest pain, vomiting, or diarrhea. Surgery Progress Note: Obj - Vital signs Vital signs: Vital Signs - Most Recent Temp Pulse Resp BP Pulse Ox 98.2 F 79 16 160/80 H 93 L 12/22/20 07:54 12/22/20 07:54 12/22/20 07:54 12/22/20 07:54 12/22/20 07:54 - Physical Exam General: moderate distress, severe pain (patient keeps forgetting to push her ENVIRONMENTAL REMEDIATION SPECIALIST) Neck: no bruits, no ninfa distention Cardiovascular: regular rate and rhythm Respiratory: clear to auscultation, breath sounds present Abdomen: soft, nondistended, positive bowel sounds, appropriately tender Wound: dressing clean,dry,intact, healing well, drainage (KIRBY with 4-5mL serosanguinous fluid) Surgery Progress Note: Results - Labs Result Diagrams: 12/22/20 05:20 12/22/20 05:20 Lab results: Laboratory Results - last 12 hr 12/22/20 12/22/20 12/22/20 03:30 05:20 05:20 WBC 15.4 H RBC 3.41 L Hgb 10.1 L Hct 32.5 L MCV 95.3 MCH 29.8 MCHC 31.2 L RDW 11.2 L Plt Count 428 H MPV 8.8 Neutrophils % 82.9 H Lymphocytes % 7.6 L Monocytes % 8.9 Eosinophils % 0.6 Basophils % 0.1 Neutrophils # 12.7 H Lymphocytes # 1.2 Monocytes # 1.4 H Eosinophils # 0.1 Basophils # 0.0 Sodium 135 L Potassium 4.4 Chloride 107 Carbon Dioxide 22 L Anion Gap 10 BUN 9 L Creatinine 1.03 Estimated GFR (MDRD) 53 Glucose 166 H Calcium 8.2 Phosphorus 2.7 Magnesium 1.3 L Surgery Progress Note: A/P - Plan Plan: s/p day 1 revision gastrojejunostomy with PEG tube placement - continue to encourage ambulation with PT/OT Patient is hesitant due to her pain - her incision is healing well, continue to monitor KIRBY drain for changes in fluid output. - consider clear liquid diet - continue to treat patients nausea with PRN ondansetron - pain control with ENVIRONMENTAL REMEDIATION SPECIALIST fentanyl Addendum - Physician - Physician Attestation Date/Time: 12/22/20 1286 I personally performed or re-performed the physical examination and medical decision making. I have verified all student documentation or findings, includ ing history, physical exam and/or medical decision making. Doing better this afternoon. plan swallow eval in am, start liquids if clear.
[2020-12-22] MEDS ORDERED: Magnesium Sulfate 4 GM in Sodium Chloride 0.9% 250 ML 250 ML IVPB SCH (09:00)
[2020-12-22] MEDS: D5 1/2 NS w/20 mEq KCL 1,000 ML IV SCH ×2 (09:03→20:26)
[2020-12-22] MEDS: Pantoprazole 40 MG VIAL IVP SCH (09:05)
[2020-12-22] MEDS: Enoxaparin Sodium 40 MG/0.4 ML SYRINGE SC SCH (09:05)
--- NOTE | 2020-12-22 19:55 | PDOC.HOSPP ---
- Subjective Encounter Date: 12/22/20 Encounter Time: 10:30 Subjective: Patient seen and examined for abdominal pain. Moderate amount of abdominal pain. Mild nausea without any vomiting. Denies any chest pain, palpitations or shortness of breath. - Objective Vital Signs & Weight: Vital Signs (12 hours) Temp Pulse Resp BP Pulse Ox 12/22/20 19:27 98.2 F 70 16 183/80 H 97 12/22/20 16:07 98.2 F 75 16 155/82 H 92 L 12/22/20 11:58 98.3 F 92 16 155/81 H 97 12/22/20 08:00 93 L 12/22/20 07:54 98.2 F 79 16 160/80 H 93 L Weight Admit Weight 160 lb Weight 160 lb I&O: 12/21/20 12/22/20 12/23/20 06:59 06:59 06:59 Intake Total 1840 Output Total 420 60 Balance 1840 -420 -60 Result Diagrams: 12/22/20 05:20 12/22/20 05:20 Additional Labs: Abnormal Lab Results - Last 48 hrs 12/22/20 05:20: Sodium 135 L, Carbon Dioxide 22 L, BUN 9 L, Magnesium 1.3 L 12/22/20 05:20: WBC 15.4 H, RBC 3.41 L, Hgb 10.1 L, Hct 32.5 L, MCHC 31.2 L, RDW 11.2 L, Plt Count 428 H, Neutrophils % 82.9 H, Lymphocytes % 7.6 L, Neutrophils # 12.7 H, Monocytes # 1.4 H Microbiology - Entire Visit 12/19/20 15:50 Stool C. difficile GDH Antigen & Toxins - Final Hospitalist ROS - Review of Systems Respiratory: denies: cough, dry, shortness of breath, hemoptysis, SOB with e xcertion, pleuritic pain, sputum, wheezing, other Cardiovascular: denies: chest pain, palpitations, orthopnea, paroxysmal noc. dyspnea, edema, light headedness, other - Medication Medications: Active Medications Generic Name Dose Route Start Last Admin Trade Name Freq PRN Reason Stop Dose Admin Enoxaparin Sodium 40 mg 12/22/20 09:00 12/22/20 09:05 Enoxaparin Sodium 40 Mg/0.4 Ml Syringe SC 40 mg 0900 MICHAEL Administration Hydralazine HCl 10 mg 12/21/20 13:04 12/21/20 14:03 Hydralazine 20 Mg/Ml Vial SLOW IVP 10 mg Q4H PRN Administration SBP > 170 or DBP > 100 Ondansetron HCl 4 mg 12/21/20 11:27 12/21/20 17:32 Ondansetron Pf 4 Mg/2 Ml Vial IVP 4 mg Q6H PRN Administration Nausea/Vomiting Pantoprazole Sodium 40 mg 12/22/20 09:00 12/22/20 09:05 Pantoprazole 40 Mg Vial IVP 40 mg DAILY MICHAEL Administration Hospitalist Exam Vitals: Vital Signs (12 hours) Temp Pulse Resp BP Pulse Ox 12/22/20 19:27 98.2 F 70 16 183/80 H 97 12/22/20 16:07 98.2 F 75 16 155/82 H 92 L 12/22/20 11:58 98.3 F 92 16 155/81 H 97 12/22/20 08:00 93 L 12/22/20 07:54 98.2 F 79 16 160/80 H 93 L Weight Admit Weight 160 lb Weight 160 lb General Appearance: awake alert Neck: supple, no JVD Heart: RRR, no gallops Respiratory: no wheezes, no ronchi Gastrointestinal: soft, no guarding, no rigidity, tender to palpation Extremities: no cyanosis Musculoskeletal: generalized weakness Hosp A/P - Plan DVT proph w/SCDs Patient is a 70-year-old female with gastric bypass at outside facility in the past presented to the emergency room with abdominal pain on 12/16. CT scan of the abdomen and pelvis showed findings consistent with contained perforation of the anterior gastric pouch. Patient was monitored on the surgical floor and was started on empiric antibiotics. She was evaluated by general surgery. She underwent a repeat CT scan with oral contrast on 12/18 that showed an area along the gastric pouch with contained perforation with diverticulosis and left renal cyst. She was started on clear liquid diet that was advanced to full liquid on 12/19. Patient underwent gastrojejunostomy revision with PEG tube placement on 12/21/2020. Impression: Abdominal pain due to contained ?chronic gastrojejunal perforation S/p gastrojejunostomy revision on 12/21 AKIOn CKD stage IIimproving Metabolic acidosis Hyponatremia Chronic anemia suspected due to nutritional deficiency History of gastric bypass Anxiety Hypertension Plan: Reduce IV fluid. Replace magnesium. Continue npo status. Continue PPIs. A.m. labs. Continue supportive care. Walking program. 12/21 Patient underwent gastrojejunostomy revision today. Renal function improving. Continue IV fluids with dextrose and potassium. Zosyn was discontinued. Continue IV PPIs. Recheck labs in a.m. continue postoperative care. N.p.o. for now. Consult walking program 12/20 Vital signs stable. Continue gentle hydration. Renal function improving. Stool for C. difficile was negative. Continue empiric antibiotics. Surgery in a.m. Replace magnesium. Continue other medications as above 12/19 Vital signs stable. WBC count normalized. Renal function improving. Will replace phosphorus. Continue IV Zosyn. Reduce IV fluid to 75 mL. Continue Lexapro, Lamictal and other medications as above. Due to diarrhea a C. difficile sample will be sent. Add probiotics 12/[address] scan today. Add dextrose to IV fluids while n.p.o. Continue IV Zosyn. Continue PPI. Pain control a.m. labs. Continue other medications as above add as needed medications. Resume selected home medications. Continue other medications as above
[2020-12-23 06:08] LABS: #Eosinphils 0.4 thou/uL (0.0-0.7); #Lymphocytes 1.7 thou/uL (1.20-3.40); #Monocytes 1.1 thou/uL (0.11-0.59); #Neutrophils 10.1 thou/uL (1.40-6.50); %Basophils 0.3 % (0.0-1.0); %Eosinophils 2.9 % (0.0-10.0); %Lymphocytes 12.7 % (21.0-51.0); %Monocytes 8.4 % (0.0-10.0); %Neutrophils 75.7 % (42.0-75.0); Hemoglobin 9.5 g/dL (12.0-16.0); Mean Corpuscular HGB CONC 31.3 g/dL (32.0-36.0); Mean Corpuscular Hemoglobin 29.8 pg (27.0-31.0); Mean Platelet Volume 8.3 fL (7.4-10.4); Platelet Count 419 thou/uL (130-400); RBC Distribution Width 11.4 % (11.5-14.5); White Blood Cell (WBC) Count 13.3 thou/uL (4.8-10.8)
[2020-12-23 06:42] LABS: ALT (SGPT) 51 U/L (8-55); AST (SGOT) 26 U/L (5-34); Albumin 2.3 g/dL (3.4-4.8); Alkaline Phosphatase 400 U/L (40-110); Anion Gap 12 mmol/L (10-20); BUN (Urea Nitrogen) 7 mg/dL (9.8-20.1); Bilirubin, Total 0.3 mg/dL (0.2-1.2); Calc. Creatinine Clearance 55 mL/min (70-130); Calcium 8.2 mg/dL (7.8-10.44); Carbon Dioxide 22 mmol/L (23-31); Chloride 107 mmol/L (98-107); Globulin 2.7 g/dL (2.4-3.5); Glucose 97 mg/dL (83-110); Phosphorus 2.2 mg/dL (2.3-4.7); Potassium 4.7 mmol/L (3.5-5.1); Sodium 136 mmol/L (136-145)
[2020-12-23] MEDS ORDERED: Sodium Phosphate 10 MMOL in Sodium Chloride 0.9% 250 ML 250 ML IVPB SCH (08:45)
[2020-12-23] MEDS: D5 1/2 NS w/20 mEq KCL 1,000 ML IV SCH (09:14)
[2020-12-23] MEDS: Enoxaparin Sodium 40 MG/0.4 ML SYRINGE SC SCH (09:16)
[2020-12-23] MEDS: Pantoprazole 40 MG VIAL IVP SCH (09:17)
[2020-12-23] MEDS ORDERED: GASTROGRAFIN 30 ML BOT ONE (10:14)
--- NOTE | 2020-12-23 11:35 | RAD ---
Esophagram HISTORY: Gastric perforation repair. FINDINGS: Single column Gastrografin contrast evaluation shows postoperative changes consistent with prior gastrojejunostomy. Contrast immediately passes through the GE junction and into the jejunum. Minimal residual gastric pouch. No evidence of leak or obstruction. Slight delay in passage of the entire atrophy of the contrast was noted,, possibly related to residual edema.
[2020-12-23] MEDS ORDERED: Fentanyl 100 MCG/2 ML VIAL SLOW IVP PRN ×2 (12:11)
--- NOTE | 2020-12-23 12:14 | PDOC.GSPN ---
Surgery Progress Note: Subj - Subjective Patient reports: no new complaints Surgery Progress Note: Obj - Vital signs Vital signs: Vital Signs - Most Recent Temp Pulse Resp BP Pulse Ox 98.1 F 73 16 153/77 H 95 12/23/20 11:29 12/23/20 11:29 12/23/20 11:29 12/23/20 11:29 12/23/20 11:29 - Physical Exam General: no distress Abdomen: soft, appropriately tender Wound: healing well Surgery Progress Note: Results - Labs Result Diagrams: 12/23/20 05:47 12/23/20 05:47 Lab results: Laboratory Results - last 12 hr 12/23/20 12/23/20 05:47 05:47 WBC 13.3 H RBC 3.20 L Hgb 9.5 L Hct 30.4 L MCV 95.0 MCH 29.8 MCHC 31.3 L RDW 11.4 L Plt Count 419 H MPV 8.3 Neutrophils % 75.7 H Lymphocytes % 12.7 L Monocytes % 8.4 Eosinophils % 2.9 Basophils % 0.3 Neutrophils # 10.1 H Lymphocytes # 1.7 Monocytes # 1.1 H Eosinophils # 0.4 Basophils # 0.0 Sodium 136 Potassium 4.7 Chloride 107 Carbon Dioxide 22 L Anion Gap 12 BUN 7 L Creatinine 1.05 Estimated GFR (MDRD) 52 Glucose 97 Calcium 8.2 Phosphorus 2.2 L Magnesium 2.0 Total Bilirubin 0.3 AST 26 ALT 51 Alkaline Phosphatase 400 H Serum Total Protein 5.0 L Albumin 2.3 L Globulin 2.7 Albumin/Globulin Ratio 0.9 L Surgery Progress Note: A/P - Problem (1) Perforated small intestine Current Visit: Yes Code(s): K63.1 - PERFORATION OF INTESTINE (NONTRAUMATIC) Status: Acute - Plan Plan: POD 2 -swallow shows no leak -start PO meds, clear liquids
[2020-12-23] MEDS: Hydrocodone-Acetamin 15 ML UDCUP PO PRN (17:23)
[2020-12-23] MEDS: Zolpidem Tartrate 5 MG TAB PO PRN (22:17)
--- NOTE | 2020-12-23 23:01 | PDOC.HOSPP ---
- Subjective Encounter Date: 12/23/20 Encounter Time: 17:30 Subjective: Patient seen and examined for gastric perforation. Denies any new complaints. OIL AND GAS FIELD TECHNICIAN/Escobar discontinued. Started on clear liquid diet. - Objective Vital Signs & Weight: Vital Signs (12 hours) Temp Pulse Resp BP Pulse Ox 12/23/20 19:54 98.2 F 65 16 134/76 92 L 12/23/20 15:44 98.2 F 70 16 149/82 H 93 L 12/23/20 11:29 98.1 F 73 16 153/77 H 95 Weight Admit Weight 160 lb Weight 160 lb I&O: 12/22/20 12/23/20 12/24/20 06:59 06:59 06:59 Intake Total 840 720 Output Total 804 300 4289 Balance -420 280 -535 Result Diagrams: 12/23/20 05:47 12/23/20 05:47 Radiology Reviewed by me: Yes (No leak on barium swallow) Hospitalist ROS - Review of Systems Respiratory: denies: cough, dry, shortness of breath, hemoptysis, SOB with excertion, pleuritic pain, sputum, wheezing, other Cardiovascular: denies: chest pain, palpitations, orthopnea, paroxysmal noc. dyspnea, edema, light headedness, other - Medication Medications: Active Medications Generic Name Dose Route Start Last Admin Trade Name Freq PRN Reason Stop Dose Admin Hydrocodone Bitart/Acetaminophen 15 ml 12/23/20 12:10 12/23/20 17:23 Hydrocodone-Acetamin 15 Ml Udcup PO 15 ml Q6H PRN Administration Mild-Moderate Pain (1-5) Enoxaparin Sodium 40 mg 12/22/20 09:00 12/23/20 09:16 Enoxaparin Sodium 40 Mg/0.4 Ml Syringe SC 40 mg 0900 MICHAEL Administration Hydralazine HCl 10 mg 12/21/20 13:04 12/21/20 14:03 Hydralazine 20 Mg/Ml Vial SLOW IVP 10 mg Q4H PRN Administration SBP > 170 or DBP > 100 Ondansetron HCl 4 mg 12/21/20 11:27 12/21/20 17:32 Ondansetron Pf 4 Mg/2 Ml Vial IVP 4 mg Q6H PRN Administration Nausea/Vomiting Pantoprazole Sodium 40 mg 12/22/20 09:00 12/23/20 09:17 Pantoprazole 40 Mg Vial IVP 40 mg DAILY MICHAEL Administration Zolpidem Tartrate 5 mg 12/21/20 11:27 12/23/20 22:17 Zolpidem Tartrate 5 Mg Tab PO 5 mg HSPRN PRN Administration Insomnia Hospitalist Exam Vitals: Vital Signs (12 hours) Temp Pulse Resp BP Pulse Ox 12/23/20 19:54 98.2 F 65 16 134/76 92 L 12/23/20 15:44 98.2 F 70 16 149/82 H 93 L 12/23/20 11:29 98.1 F 73 16 153/77 H 95 Weight Admit Weight 160 lb Weight 160 lb General Appearance: awake alert Neck: supple, no JVD Heart: no gallops, no rubs Respiratory: no wheezes, no rales Gastrointestinal: soft, no guarding, no rigidity Extremities: no cyanosis Neurological: no new deficit Musculoskeletal: generalized weakness Hosp A/P - Plan DVT proph w/SCDs Patient is a 70-year-old female with gastric bypass at outside facility in the past presented to the emergency room with abdominal pain on 12/16. CT scan of the abdomen and pelvis showed findings consistent with contained perforation of the anterior gastric pouch. Patient was monitored on the surgical floor and was started on empiric antibiotics. She was evaluated by general surgery. She underwent a repeat CT scan with oral contrast on 12/18 that showed an area along the gastric pouch with contained perforation with diverticulosis and left renal cyst. She was started on clear liquid diet that was advanced to full liquid on 12/19. Patient underwent gastrojejunostomy revision with PEG tube placement on 12/21/2020. 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 Off OIL AND GAS FIELD TECHNICIAN. Escobar catheter discontinued. Continue supportive care. Continue to ambulate. Continue other medications as above. IV fluid discontinued. Replace phosphorus 2/3 Reduce IV fluid. Replace magnesium. Continue npo status. Continue PPIs. A.m. labs. Continue supportive care. Walking program. 12/21 Patient underwent gastrojejunostomy revision today. Renal function improving. Continue IV fluids with dextrose and potassium. Zosyn was discontinued. Continue IV PPIs. Recheck labs in a.m. continue postoperative care. N.p.o. for now. Consult walking program 12/20 Vital signs stable. Continue gentle hydration. Renal function improving. Stool for C. difficile was negative. Continue empiric antibiotics. Surgery in a.m. Replace magnesium. Continue other medications as above 12/19 Vital signs stable. WBC count normalized. Renal function improving. Will replace phosphorus. Continue IV Zosyn. Reduce IV fluid to 75 mL. Continue Lexapro, Lamictal and other medications as above. Due to diarrhea a C. difficile sample will be sent. Add probiotics 12/[address] scan today. Add dextrose to IV fluids while n.p.o. Continue IV Zosyn. Continue PPI. Pain control a.m. labs. Continue other medications as a ezra add as needed medications. Resume selected home medications. Continue other medications as above
[2020-12-24] MEDS: Hydrocodone-Acetamin 15 ML UDCUP PO PRN ×2 (02:15→20:55)
[2020-12-24] MEDS: Amlodipine 10 MG TAB PO SCH (08:51)
[2020-12-24] MEDS: Hydrochlorothiazide 25 MG TAB PO SCH (08:52)
[2020-12-24] MEDS: Pantoprazole 40 MG VIAL IVP SCH (08:53)
[2020-12-24] MEDS: Valsartan 80 MG TAB PO SCH (08:53)
[2020-12-24] MEDS: Enoxaparin Sodium 40 MG/0.4 ML SYRINGE SC SCH (08:53)
--- NOTE | 2020-12-24 12:21 | PDOC.GSPN ---
Surgery Progress Note: Subj - Subjective Patient reports: no new complaints, tolerating liquids well Surgery Progress Note: Obj - Vital signs Vital signs: Vital Signs - Most Recent Temp Pulse Resp BP Pulse Ox 97.7 F 84 16 147/70 H 94 L 12/24/20 11:06 12/24/20 11:06 12/24/20 11:06 12/24/20 11:06 12/24/20 11:06 - Physical Exam General: no distress Cardiovascular: regular rate and rhythm Respiratory: clear to auscultation Abdomen: soft, appropriately tender Wound: healing well Surgery Progress Note: Results - Labs Result Diagrams: 12/23/20 05:47 12/23/20 05:47 Surgery Progress Note: A/P - Problem (1) Perforated small intestine Current Visit: Yes Code(s): K63.1 - PERFORATION OF INTESTINE (NONTRAUMATIC) Status: Acute - Plan Plan: Advance to full liquids Home health consult. Home tomorrow
[2020-12-24] MEDS: Zolpidem Tartrate 5 MG TAB PO PRN (20:55)
--- NOTE | 2020-12-24 22:51 | PDOC.HOSPP ---
- Subjective Encounter Date: 12/24/20 Encounter Time: 11:00 Subjective: Patient seen and examined for abdominal pain due to gastric perforation. Tolerating clear liquid diet. Pain controlled. - Objective Vital Signs & Weight: Vital Signs (12 hours) Temp Pulse Resp BP Pulse Ox 12/24/20 20:46 97.9 F 75 16 145/78 H 95 12/24/20 15:56 98.2 F 75 16 122/71 96 12/24/20 11:06 97.7 F 84 16 147/70 H 94 L Weight Admit Weight 160 lb Weight 160 lb I&O: 12/23/20 12/24/20 12/25/20 06:59 06:59 06:59 Intake Total 466 341 0652 Output Total 560 1280 70 Balance 280 -320 950 Result Diagrams: 12/23/20 05:47 12/23/20 05:47 Hospitalist ROS - Review of Systems Respiratory: denies: cough, dry, shortness of breath, hemoptysis, SOB with excertion, pleuritic pain, sputum, wheezing, other Cardiovascular: denies: chest pain, palpitations, orthopnea, paroxysmal noc. dyspnea, edema, light headedness, other - Medication Medications: Active Medications Generic Name Dose Route Start Last Admin Trade Name Freq PRN Reason Stop Dose Admin Hydrocodone Bitart/Acetaminophen 15 ml 12/23/20 12:10 12/24/20 20:55 Hydrocodone-Acetamin 15 Ml Udcup PO 15 ml Q6H PRN Administration Mild-Moderate Pain (1-5) Amlodipine Besylate 10 mg 12/24/20 09:00 12/24/20 08:51 Amlodipine 10 Mg Tab PO 10 mg DAILY MICHAEL Administration Enoxaparin Sodium 40 mg 12/22/20 09:00 12/24/20 08:53 Enoxaparin Sodium 40 Mg/0.4 Ml Syringe SC 40 mg 0900 MICHAEL Administration Hydralazine HCl 10 mg 12/21/20 13:04 12/21/20 14:03 Hydralazine 20 Mg/Ml Vial SLOW IVP 10 mg Q4H PRN Administration SBP > 170 or DBP > 100 Hydrochlorothiazide 12.5 mg 12/24/20 09:00 12/24/20 08:52 Hydrochlorothiazide 25 Mg Tab PO 12.5 mg DAILY MICHAEL Administration Ondansetron HCl 4 mg 12/21/20 11:27 12/21/20 17:32 Ondansetron Pf 4 Mg/2 Ml Vial IVP 4 mg Q6H PRN Administration Nausea/Vomiting Pantoprazole Sodium 40 mg 12/22/20 09:00 12/24/20 08:53 Pantoprazole 40 Mg Vial IVP 40 mg DAILY MICHAEL Administration Valsartan 160 mg 12/24/20 09:00 12/24/20 08:53 Valsartan 80 Mg Tab PO 160 mg DAILY MICHAEL Administration Zolpidem Tartrate 5 mg 12/21/20 11:27 12/24/20 20:55 Zolpidem Tartrate 5 Mg Tab PO 5 mg HSPRN PRN Administration Insomnia Hospitalist Exam Vitals: Vital Signs (12 hours) Temp Pulse Resp BP Pulse Ox 12/24/20 20:46 97.9 F 75 16 145/78 H 95 12/24/20 15:56 98.2 F 75 16 122/71 96 12/24/20 11:06 97.7 F 84 16 147/70 H 94 L Weight Admit Weight 160 lb Weight 160 lb General Appearance: NAD Heart: RRR, no gallops Respiratory: no wheezes, no ronchi Gastrointestinal: soft, no guarding, no rigidity Extremities: no cyanosis Neurological: no new deficit Hosp A/P - Plan DVT proph w/SCDs Patient is a 70-year-old female with gastric bypass at outside facility in the past presented to the emergency room with abdominal pain on 12/16. CT scan of the abdomen and pelvis showed findings consistent with contained perforation of the anterior gastric pouch. Patient was monitored on the surgical floor and was started on empiric antibiotics. She was evaluated by general surgery. She underwent a repeat CT scan with oral contrast on 12/18 that showed an area along the gastric pouch with contained perforation with diverticulosis and left renal cyst. She was started on clear liquid diet that was advanced to full liquid on 12/19. Patient underwent gastrojejunostomy revision with PEG tube placement on 12/21/2020. 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 IV fluids discontinued. Continue PPIs. Continue postoperative care. Ambulate. Incentive spirometry. No need for antibiotics per surgery. DC planning. Home health care set up 12/23 Started on clear liquid diet. Off BOILER SERVICE TECHNICIAN. Escobar catheter discontinued. Continue supportive care. Continue to ambulate. Continue other medications as above. IV fluid discontinued. Replace phosphorus 2/3 Reduce IV fluid. Replace magnesium. Continue npo status. Continue PPIs. A.m. labs. Continue supportive care. Walking program. 12/21 Patient underwent gastrojejunostomy revision today. Renal function improving. Continue IV fluids with dextrose and potassium. Zosyn was discontinued. Continue IV PPIs. Recheck labs in a.m. continue postoperative care. N.p.o. for now. Consult walking program 12/20 Vital signs stable. Continue gentle hydration. Renal function improving. St ool for C. difficile was negative. Continue empiric antibiotics. Surgery in a.m. Replace magnesium. Continue other medications as above 12/19 Vital signs stable. WBC count normalized. Renal function improving. Will replace phosphorus. Continue IV Zosyn. Reduce IV fluid to 75 mL. Continue L exapro, Lamictal and other medications as above. Due to diarrhea a C. difficile sample will be sent. Add probiotics 12/[address] scan today. Add dextrose to IV fluids while n.p.o. Continue IV Zosyn. Continue PPI. Pain control a.m. labs. Continue other medications as above add as needed medications. Resume selected home medications. Continue other medications as above
[2020-12-25] MEDS: Valsartan 80 MG TAB PO SCH (08:05)
[2020-12-25] MEDS: Hydrochlorothiazide 25 MG TAB PO SCH (08:06)
[2020-12-25] MEDS: Amlodipine 10 MG TAB PO SCH (08:06)
[2020-12-25] MEDS: Enoxaparin Sodium 40 MG/0.4 ML SYRINGE SC SCH (08:08)
[2020-12-25] MEDS: Pantoprazole 40 MG VIAL IVP SCH (08:16)
[2020-12-25 08:30] VITALS: TEMP 98.1
--- NOTE | 2020-12-25 11:30 | DIS ---
DATE OF ADMISSION: 12/17/2020 DATE OF DISCHARGE: 12/25/2020 ADMIT DIAGNOSIS: Chronic perforation gastrojejunostomy. DISCHARGE DIAGNOSIS: Chronic perforation gastrojejunostomy. PROCEDURE PERFORMED: Open revision of gastrojejunostomy by Dr. Wren without complication. CONDITION ON DISCHARGE: Improved. STAFF: Dr. Wren. HOSPITAL COURSE: The patient was admitted on transfer from the [facility]. She had a noncontrast CT over there showing perforation in her gastrojejunal anastomosis from previous gastric bypass repeat study confirmed this. She underwent revision of this gastrojejunal anastomosis. She had placed in the remnant stomach. Her postop course was uneventful. She was on a full liquid diet. On discharge, her pain was controlled. Prescriptions for Lortab, elixir, Zofran sent to her pharmacy. She has a G-tube which she is going to use to flush to stay hydrated as well as she can use it for protein shakes as well. She is going to follow up with me within the week for G-tube site check. All medicines as before hospitalization. Job ID: [id number]
[2020-12-25 12:11] VITALS: BP 156/80
--- NOTE | 2020-12-25 17:03 | PDOC.DS.DS ---
Provider Date of Admission: 12/17/20 16:44 Date of Discharge: 12/25/20 Admitting Provider: Terrell Quiñones MD Consultations: General Surgery Primary Care Physician: Erinn Gutierrez MD Course Hospital Course: Patient is a 70-year-old female with gastric bypass at outside facility in the past presented to the emergency room with abdominal pain on 12/16. CT scan of the abdomen and pelvis showed findings consistent with contained perforation of the anterior gastric pouch. Patient was monitored on the surgical floor and was started on empiric antibiotics. She was evaluated by general surgery. She underwent a repeat CT scan with oral contrast on 12/18 that showed an area along the gastric pouch with contained perforation with diverticulosis and left renal cyst. She was started on clear liquid diet that was advanced to full liquid on 12/19. Patient underwent gastrojejunostomy revision with PEG tube placement on 12/21/2020. Postoperatively patient has done well. She was started on clear liquid that was transitioned to full liquid diet. She has been cleared by general surgery for discharge with home health care. Patient has a G-tube to keep her hydrated. 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 difficile GDH Antigen & Toxins - Final Vitals: Vital Signs (12 hours) Temp Pulse Resp BP BP Pulse Ox 12/25/20 11:32 98.1 F 81 18 156/80 H 93 L 12/25/20 08:06 70 136/65 12/25/20 08:00 96 12/25/20 07:41 98.1 F 72 18 136/65 96 12/25/20 05:08 97.5 F L 70 15 128/74 90 L Weight Admit Weight 160 lb Weight 160 lb Physical Exam: The patient was evaluated on the day of discharge. Plan Home Medications: Medication Instructions Recorded Confirmed Type Amlodipine Besylate [amLODIPine 10 mg PO DAILY 12/17/20 12/17/20 History Besylate] Escitalopram Oxalate [Lexapro] 20 mg PO DAILY 12/17/20 12/17/20 History Lamotrigine [lamoTRIgine] 150 mg PO BID 12/17/20 12/17/20 History Pantoprazole [Protonix] 40 mg PO DAILY-AC 12/17/20 12/17/20 History Valsartan/Hydrochlorothiazide 1 each PO DAILY 12/17/20 12/17/20 History [Valsartan-Hctz 160-12.5 mg Tab] Zolpidem Tartrate [Ambien] 1 tab PO HS 12/18/20 12/18/20 History Allergies: No Known Allergies Allergy (Verified 12/16/20 20:29) PER ER PROFILE Referrals: Erinn Gutierrez MD [Primary Care Provider] - Ron Wren MD [Active] - 12/29/20 Disposition: HOME HEALTH Quality CORE MEASURES:: N/A
== END 2020-12-25 12:26 | disposition home health service (06) | DRG 326 ==
LOC: EDSTATUS 16:43 → SJJU 16:44
PROVIDERS: ADMIT Internal Medicine; ATTEND Internal Medicine
PROC: 0D160ZA Bypass Stomach to Jejunum, Open Approach (ICD-10-PCS; principal; 2020-12-21)
PROC: 0DB60ZZ Excision of Stomach, Open Approach (ICD-10-PCS; 2020-12-21)
PROC: 0DJ08ZZ Inspection of Upper Intestinal Tract, Via Natural or Artificial Opening Endoscopic (ICD-10-PCS; 2020-12-21)
PROC: 0DH63UZ Insertion of Feeding Device into Stomach, Percutaneous Approach (ICD-10-PCS; 2020-12-21)
DX: K94.29 Other complications of gastrostomy (principal); K28.5 Chronic or unspecified gastrojejunal ulcer with perforation; N17.9 Acute kidney failure, unspecified; E87.2 Acidosis; E87.1 Hypo-osmolality and hyponatremia; N18.2 Chronic kidney disease, stage 2 (mild); E83.39 Other disorders of phosphorus metabolism; D53.9 Nutritional anemia, unspecified; F41.9 Anxiety disorder, unspecified; I12.9 Hypertensive chronic kidney disease with stage 1 through stage 4 chronic kidney disease, or unspecified chronic kidney disease; Z20.822 Contact with and (suspected) exposure to COVID-19; F32.9 Major depressive disorder, single episode, unspecified; N28.1 Cyst of kidney, acquired; K57.30 Diverticulosis of large intestine without perforation or abscess without bleeding; E66.01 Morbid (severe) obesity due to excess calories; Y83.2 Surgical operation with anastomosis, bypass or graft as the cause of abnormal reaction of the patient, or of later complication, without mention of misadventure at the time of the procedure; Z68.31 Body mass index [BMI] 31.0-31.9, adult; Z79.899 Other long term (current) drug therapy; R10.9 Unspecified abdominal pain; R19.7 Diarrhea, unspecified; R11.2 Nausea with vomiting, unspecified
CPT/HCPCS: 0240U; 36415; 71045; 74150; 74176; 74240; 80048; 80053; 81001; 83605; 83630; 83690; 83735; 84100; 84484; 85025; 87015; 87045; 87046; 87077; 87086; 87186; 87206; 87324; 87338; 87427; 87449; 88307; 93005; 96361; 96374; 96375; 96376; C9113; G0378; J0360; J1100; J1170; J1650; J1885; J2270; J2405; J2543; J2550; J2704; J3010; J3475; J3480; J3490; J7042; J7050; Q9963; S0020

== ENCOUNTER 2024-10-11 23:14 | Inpatient (IN) | payer MEDICARE ==
[2024-10-12 00:05] VITALS: BMI 20.9
[2024-10-12] MEDS ORDERED: Acetaminophen 650 MG Suppository PR PRN (00:59)
[2024-10-12] MEDS ORDERED: Acetaminophen 325 MG TAB PO PRN (00:59)
[2024-10-12] MEDS ORDERED: Ondansetron PF 4 MG/2 ML Vial IVP PRN (01:01)
[2024-10-12] MEDS ORDERED: Ondansetron ODT 4 MG TAB PO PRN (01:01)
[2024-10-12] MEDS ORDERED: Zolpidem Tartrate 5 MG TAB PO PRN (01:21)
[2024-10-12 01:24] LABS: #Basophils 0.06 10x3/uL (0.0-0.2); %Basophils 0.9 % (0.0-1.0); %Eosinophils 1.9 % (0.0-10.0); %Lymphocytes 33.1 % (21.0-51.0); %Monocytes 8.8 % (0.0-10.0); Hematocrit 21.2 % (36.0-47.0); Hemoglobin 6.7 g/dL (12.0-16.0); Mean Corpuscular HGB CONC 31.6 g/dL (32.0-36.0); Mean Corpuscular Hemoglobin 31.3 pg (27.0-31.0); Mean Corpuscular Volume 99.1 fL (78.0-98.0); Platelet Count 191 10x3/uL (130-400); RBC Distribution Width 12.5 % (11.5-14.5); Red Blood Cell (RBC) Count 2.14 mill/uL (4.20-5.40)
[2024-10-12] MEDS: Pantoprazole 40 MG VIAL IVP SCH ×2 (01:36→08:31)
[2024-10-12 01:58] LABS: Iron 98 ug/dL (50-170); Iron Binding Capacity, Total 193 mcg/dL (265-497)
[2024-10-12 01:59] LABS: ALT (SGPT) 18 U/L (8-55); AST (SGOT) 24 U/L (5-34); Albumin 2.7 g/dL (3.4-4.8); Alkaline Phosphatase 89 U/L (40-110); Anion Gap 11 mmol/L (10-20); BUN (Urea Nitrogen) 24 mg/dL (9.8-20.1); Bilirubin, Total 0.4 mg/dL (0.2-1.2); Calc. Creatinine Clearance 30 mL/min (70-130); Carbon Dioxide 19 mmol/L (23-31); Chloride 111 mmol/L (98-107); Estimated GFR 46; Globulin 1.6 g/dL (2.4-3.5); Glucose 101 mg/dL (83-110); Iron 97 ug/dL (50-170); Iron Binding Capacity, Total 194 mcg/dL (265-497); Magnesium 1.8 mg/dL (1.6-2.6); Potassium 3.2 mmol/L (3.5-5.1); Protein, Total 4.3 g/dL (5.8-8.1); Sodium 138 mmol/L (136-145)
[2024-10-12] MEDS ORDERED: Electrolyte Replacement Protocol 1 EACH FS SCH (02:15)
[2024-10-12] MEDS: Magnesium 2 GM/50 ML(in water) 2 GM in Premix 1 BAG IVPB SCH (03:16)
[2024-10-12 03:23] LABS: Ferritin 104.24 ng/mL (10-291)
[2024-10-12] MEDS: Potassium Chloride 20 MEQ in Premix 1 BAG IVPB SCH (05:08)
[2024-10-12 08:05] LABS: Hematocrit 25.9 % (36.0-47.0); Hemoglobin 8.3 g/dL (12.0-16.0)
[2024-10-12] MEDS: lamoTRIgine 100 MG TAB PO SCH (08:31)
[2024-10-12] MEDS: Escitalopram Oxalate 20 mg Tablet PO SCH (08:31)
[2024-10-12] MEDS: Amlodipine 5 MG TAB PO SCH ×2 (12:04→21:33)
[2024-10-12] MEDS: Sodium Chloride 0.9% 1,000 ML IV SCH (12:05)
[2024-10-12 12:07] LABS: Hematocrit 26.6 % (36.0-47.0); Hemoglobin 8.5 g/dL (12.0-16.0)
[2024-10-12] MEDS: GoLYTELY 4,000 ml Bottle PO SCH (14:21)
[2024-10-12] MEDS: hydrALAZINE 25 MG TAB PO PRN (17:44)
[2024-10-12] MEDS: hydrALAZINE 20 MG/ML VIAL SLOW IVP SCH (18:47)
[2024-10-12 20:27] LABS: Hematocrit 31.5 % (36.0-47.0); Hemoglobin 10.1 g/dL (12.0-16.0)
[2024-10-12] MEDS: Cyanocobalamin (Vitamin B-12) 1,000 MCG TAB PO SCH (21:34)
[2024-10-12] MEDS: Multivit, Therapeutic 1 TAB PO SCH (21:35)
[2024-10-12] MEDS: Folic Acid 1 MG TAB PO SCH (21:35)
[2024-10-12] MEDS ORDERED: hydrALAZINE 25 MG TAB PO PRN (21:37)
[2024-10-13 04:57] LABS: Hematocrit 28.4 % (36.0-47.0); Hemoglobin 9.3 g/dL (12.0-16.0)
[2024-10-13 05:06] LABS: ALT (SGPT) 19 U/L (8-55); AST (SGOT) 24 U/L (5-34); Albumin 2.9 g/dL (3.4-4.8); Alkaline Phosphatase 105 U/L (40-110); Anion Gap 12 mmol/L (10-20); BUN (Urea Nitrogen) 15 mg/dL (9.8-20.1); Bilirubin, Total 0.5 mg/dL (0.2-1.2); Calc. Creatinine Clearance 34 mL/min (70-130); Calcium 8.4 mg/dL (7.8-10.44); Carbon Dioxide 23 mmol/L (23-31); Chloride 108 mmol/L (98-107); Estimated GFR 54; Globulin 1.9 g/dL (2.4-3.5); Glucose 102 mg/dL (83-110); Potassium 3.7 mmol/L (3.5-5.1); Protein, Total 4.8 g/dL (5.8-8.1); Sodium 139 mmol/L (136-145)
[2024-10-13] MEDS ORDERED: PROPOFOL 20 ML ONE (08:47)
[2024-10-13] MEDS ORDERED: Non-Formulary Item 1 EACH (Valsartan/Hydrochlorothiazide [Valsartan-Hctz 160-12.5 Mg Tab] PO SCH (09:00)
[2024-10-13] MEDS ORDERED: Hydrochlorothiazide 25 MG TAB PO SCH (09:00)
[2024-10-13] MEDS ORDERED: ePHEDrine Sulfate 50 MG/10 ML VIAL ONE (09:25)
[2024-10-13] MEDS ORDERED: Lidocaine 1% PF 5 ML VIAL ONE (09:25)
[2024-10-13] MEDS ORDERED: Midazolam HCl 2 mg/2 ml Vial ONE (09:36)
[2024-10-13 10:20] VITALS: TEMP 98.8
[2024-10-13] MEDS: Magnesium 2 GM/50 ML(in water) 2 GM in Premix 1 BAG IVPB SCH (10:21)
[2024-10-13] MEDS: hydrALAZINE 25 MG TAB PO SCH (10:22)
[2024-10-13] MEDS: Valsartan 80 MG TAB PO SCH (10:22)
[2024-10-13 11:46] VITALS: BP 130/66
[2024-10-13 14:54] LABS: Campy jejuni + coli by PCR Negative (Negative); STEC Shiga Toxin 1+2 Negative (Negative); Salmonella spp. by PCR Negative (Negative); Shigella spp + EIEC by PCR Negative (Negative)
[2024-10-13] MEDS ORDERED: Cyanocobalamin (Vitamin B-12) 1,000 MCG TAB PO SCH (21:00)
[2024-10-13] MEDS ORDERED: Thiamine 100 MG TAB PO SCH (21:00)
== END 2024-10-13 13:36 | disposition home or self-care (01) | DRG 378 ==
LOC: 2NO 23:35 → OBSVTOIN 10-12 00:59
PROVIDERS: ADMIT Internal Medicine; ATTEND Internal Medicine
PROC: 30233N0 Transfusion of Autologous Red Blood Cells into Peripheral Vein, Percutaneous Approach (ICD-10-PCS; principal; 2024-10-13)
PROC: 0DCN8ZZ Extirpation of Matter from Sigmoid Colon, Via Natural or Artificial Opening Endoscopic (ICD-10-PCS; 2024-10-13)
PROC: 3E033XZ Introduction of Vasopressor into Peripheral Vein, Percutaneous Approach (ICD-10-PCS; 2024-10-13)
DX: K57.31 Diverticulosis of large intestine without perforation or abscess with bleeding (principal); D62 Acute posthemorrhagic anemia; N17.9 Acute kidney failure, unspecified; E87.20 Acidosis, unspecified; E44.0 Moderate protein-calorie malnutrition; I12.9 Hypertensive chronic kidney disease with stage 1 through stage 4 chronic kidney disease, or unspecified chronic kidney disease; N18.32 Chronic kidney disease, stage 3b; E87.6 Hypokalemia; E78.5 Hyperlipidemia, unspecified; F41.9 Anxiety disorder, unspecified; F32.9 Major depressive disorder, single episode, unspecified; K21.9 Gastro-esophageal reflux disease without esophagitis; K64.8 Other hemorrhoids; Z80.0 Family history of malignant neoplasm of digestive organs; Z98.84 Bariatric surgery status; Z90.710 Acquired absence of both cervix and uterus; Z79.899 Other long term (current) drug therapy; Z87.19 Personal history of other diseases of the digestive system; Z98.890 Other specified postprocedural states; Z90.49 Acquired absence of other specified parts of digestive tract; Z68.20 Body mass index [BMI] 20.0-20.9, adult
CPT/HCPCS: 36415; 36430; 80053; 82607; 82728; 83540; 83550; 83605; 83735; 84425; 85014; 85018; 85025; 86850; 86900; 86901; 87324; 87449; 87505; J0360; J2250; J2470; J2704; J3475; J3480; J7030; P9016

== ENCOUNTER 2024-10-29 12:31 | Emergency (ER) | payer MEDICARE ==
[2024-10-29 13:27] LABS: #Basophils 0.04 10x3/uL (0.0-0.2); %Basophils 0.7 % (0.0-1.0); %Eosinophils 2.1 % (0.0-10.0); %Lymphocytes 19.4 % (21.0-51.0); %Monocytes 8.6 % (0.0-10.0); %Neutrophils 68.5 % (42.0-75.0); Hematocrit 18.4 % (36.0-47.0); Hemoglobin 5.5 g/dL (12.0-16.0); Mean Corpuscular HGB CONC 29.9 g/dL (32.0-36.0); Mean Platelet Volume 10.8 fL (7.4-10.4); Platelet Count 283 10x3/uL (130-400); RBC Distribution Width 14.6 % (11.5-14.5); Red Blood Cell (RBC) Count 1.72 mill/uL (4.20-5.40)
[2024-10-29 13:39] LABS: ALT (SGPT) 14 U/L (8-55); AST (SGOT) 33 U/L (5-34); Albumin 2.6 g/dL (3.4-4.8); Alkaline Phosphatase 92 U/L (40-110); Anion Gap 11 mmol/L (10-20); BUN (Urea Nitrogen) 27 mg/dL (9.8-20.1); Bilirubin, Total 0.2 mg/dL (0.2-1.2); Calc. Creatinine Clearance 0 mL/min (70-130); Calcium 7.6 mg/dL (7.8-10.44); Carbon Dioxide 14 mmol/L (23-31); Chloride 117 mmol/L (98-107); Estimated GFR 33; Globulin 1.9 g/dL (2.4-3.5); Glucose 109 mg/dL (83-110); Protein, Total 4.5 g/dL (5.8-8.1); Sodium 138 mmol/L (136-145)
[2024-10-29 13:46] LABS: INR-International Normal Ratio 1.1; PTT 26.6 sec (22.9-36.1); Prothrombin Time 13.7 sec (12.0-14.7)
[2024-10-29] MEDS ORDERED: CALCIUM GLUC 1 GM/NS 50 ML IV Bag ONE (17:15)
[2024-10-29 19:18] LABS: #Basophils 0.05 10x3/uL (0.0-0.2); %Basophils 0.8 % (0.0-1.0); %Eosinophils 2.2 % (0.0-10.0); %Lymphocytes 27.2 % (21.0-51.0); %Monocytes 10.2 % (0.0-10.0); Hematocrit 23.5 % (36.0-47.0); Hemoglobin 6.9 g/dL (12.0-16.0); Mean Corpuscular HGB CONC 29.4 g/dL (32.0-36.0); Mean Corpuscular Hemoglobin 30.5 pg (27.0-31.0); Mean Platelet Volume 10.7 fL (7.4-10.4); Platelet Count 235 10x3/uL (130-400); RBC Distribution Width 19.7 % (11.5-14.5); Red Blood Cell (RBC) Count 2.26 mill/uL (4.20-5.40)
[2024-10-29 23:47] LABS: #Basophils 0.05 10x3/uL (0.0-0.2); %Basophils 0.7 % (0.0-1.0); %Eosinophils 2.5 % (0.0-10.0); %Lymphocytes 27.5 % (21.0-51.0); %Monocytes 9.9 % (0.0-10.0); %Neutrophils 58.9 % (42.0-75.0); Hematocrit 29.6 % (36.0-47.0); Hemoglobin 9.2 g/dL (12.0-16.0); Mean Corpuscular HGB CONC 31.1 g/dL (32.0-36.0); Mean Corpuscular Hemoglobin 29.4 pg (27.0-31.0); Mean Corpuscular Volume 94.6 fL (78.0-98.0); Mean Platelet Volume 10.3 fL (7.4-10.4); Platelet Count 275 10x3/uL (130-400); RBC Distribution Width 20.3 % (11.5-14.5); Red Blood Cell (RBC) Count 3.13 mill/uL (4.20-5.40)
[2024-10-29 23:57] LABS: Anion Gap 11 mmol/L (10-20); BUN (Urea Nitrogen) 25 mg/dL (9.8-20.1); Calc. Creatinine Clearance 0 mL/min (70-130); Calcium 8.3 mg/dL (7.8-10.44); Carbon Dioxide 15 mmol/L (23-31); Chloride 117 mmol/L (98-107); Estimated GFR 32; Glucose 97 mg/dL (83-110); Potassium 4.1 mmol/L (3.5-5.1); Sodium 139 mmol/L (136-145)
== END 2024-10-30 00:17 | disposition home or self-care (01) ==
LOC: ERS 12:31
DX: D64.9 Anemia, unspecified (principal); E83.51 Hypocalcemia; I10 Essential (primary) hypertension; Z87.19 Personal history of other diseases of the digestive system
CPT/HCPCS: 36430; 80048; 80053; 85025 ×2; 85610; 85730; 86850; 86900; 86901; 86920; 94760; J0613; P9016; 36415; 82274; 96365; 96366